=== PATIENT | female | born 1990 | race Caucasian/White ===

== ENCOUNTER → 2016-07-28 | Outpatient (CLI) | payer OTHER ==
[~2016-07-28] MED LIST: PRENTAB26 PO; RETIN A; [UNRECOGNIZED DRUG - CODE]; [UNRECOGNIZED DRUG - OTHER]
[2016-07-28 18:28] LABS: GTGD 50 Grams
== END | disposition home or self-care (01) ==
LOC: C.LAB1850 14:30
PROVIDERS: ATTEND Obstetrics & Gynecology
DX: Z34.82 Encounter for supervision of other normal pregnancy, second trimester (principal)

== ENCOUNTER → 2016-07-28 | Outpatient (CLI) | payer OTHER ==
[2016-07-28 16:18] LABS: MANUAL MICROSCOPIC REQUIRED? NO; REVIEW REQ? NO; URINE APPEARANCE CLEAR (CLEAR); URINE BILIRUBIN NEG (NEG); URINE COLOR YELLOW; URINE NITRITE NEG (NEG); URINE PH 7.5 (4.5-7.5); URINE SPECIFIC GRAVITY 1.004 (1.000-1.030); UROBILINOGEN NEG (NEG)
== END | disposition home or self-care (01) ==
LOC: C.LABSPEC 15:49
PROVIDERS: ATTEND Obstetrics & Gynecology
DX: Z34.82 Encounter for supervision of other normal pregnancy, second trimester (principal)

== ENCOUNTER → 2016-08-09 | Outpatient (CLI) | payer OTHER | END | disposition home or self-care (01) | LOC: C.LAB1850 08:35 | PROVIDERS: ATTEND Obstetrics & Gynecology | DX: O28.1 Abnormal biochemical finding on antenatal screening of mother (principal) ==

== ENCOUNTER → 2016-10-13 | Outpatient (CLI) | payer BC, OTHER ==
[~2016-10-13] MED LIST changes: -PRENTAB26 PO
[2016-10-13 12:12] LABS: URINE APPEARANCE CLEAR (CLEAR); URINE BILIRUBIN NEG (NEG); URINE COLOR DK YELLOW; URINE NITRITE NEG (NEG); URINE SPECIFIC GRAVITY 1.024 (1.000-1.030); UROBILINOGEN NEG (NEG)
[2016-10-13 12:13] LABS: MANUAL MICROSCOPIC REQUIRED? NO; REVIEW REQ? NO
[2016-10-13 12:25] LABS: HEMATOCRIT 35.8 % (37-47)
== END | disposition home or self-care (01) ==
LOC: C.LAB1850 09:45
PROVIDERS: ATTEND Obstetrics & Gynecology
DX: Z34.82 Encounter for supervision of other normal pregnancy, second trimester (principal)

== ENCOUNTER → 2016-12-08 | Outpatient (CLI) | payer BC, OTHER | END | disposition home or self-care (01) | LOC: C.LABSPEC 10:52 | PROVIDERS: ATTEND Obstetrics & Gynecology | DX: O09.893 Supervision of other high risk pregnancies, third trimester (principal); Z3A.00 Weeks of gestation of pregnancy not specified ==

== ENCOUNTER 2017-01-09 18:52 | Outpatient (CLI) | payer BC, OTHER ==
[2017-01-10] MEDS ORDERED: PRENTAB26 PO (09:41)
== END 2017-01-09 19:15 | disposition home or self-care (01) ==
LOC: C.LD 18:52 → C.OPB 18:52
PROVIDERS: ATTEND Obstetrics & Gynecology
DX: O48.0 Post-term pregnancy (principal); Z3A.40 40 weeks gestation of pregnancy

== ENCOUNTER → 2017-02-13 | Outpatient (CLI) | payer BC, OTHER ==
[~2017-02-13] MED LIST changes: +PRENTAB26 PO; -RETIN A; -[UNRECOGNIZED DRUG - CODE]; -[UNRECOGNIZED DRUG - OTHER]
== END | disposition home or self-care (01) ==
LOC: C.PAPS 14:53
PROVIDERS: ATTEND Obstetrics & Gynecology
DX: Z39.2 Encounter for routine postpartum follow-up (principal)

== ENCOUNTER → 2017-10-20 | Outpatient (CLI) | payer BC, OTHER | END | disposition home or self-care (01) | LOC: C.LAB1850 09:09 | PROVIDERS: ATTEND Obstetrics & Gynecology | DX: O09.892 Supervision of other high risk pregnancies, second trimester (principal); Z3A.00 Weeks of gestation of pregnancy not specified ==

== ENCOUNTER 2018-04-09 19:48 | Inpatient (IN) ==
[~2018-04-09 19:48] MED LIST changes: +PENICILLIN G POTASSIUM 3 MU in DEXTROSE 5% 100 ML IV PRN; -PRENTAB26 PO
[2018-04-09] MEDS ORDERED: LACTATED RINGER'S 1,000 ML IV PRN ×2 (20:16→22:16)
[2018-04-09] MEDS ORDERED: OXYTOCIN 30 UNITS/500 ML BAG IV PRN (20:16)
--- NOTE | 2018-04-09 20:25 | History & Physical Report ---
Date of Service April 09, 2018 Assessment & Plan (1) Normal labor: admit & start PCN G infusion. plan to AROM when time for 2nd dose of PCN G anticipate vaginal . History of Present Illness Primary Care Provider: NO PCP Patient is a 27 yo white female EDC 04/07/18 who presents with regular ctns every 5 minutes for several hours. no SPROM but she did have some pink mucus discharge. GBS(+) complicated by post term gestation & history of macrosomia. Allergies Allergy/AdvReac Type Severity Reaction Status Date / Time cat dander Allergy Unknown SHORTNESS Verified 01/10/17 09:40 OF BREATH Home Medications Home Medications Medication Instructions Recorded Confirmed Type Multivit/Min/Iron/Fol Ac/Pren 1 tab PO DAILY #0 tab 01/10/17 History ( Vitamin) Patient History Medical History H/O wisdom tooth extraction No known health problems Family History Father Diabetes Grandfather (Maternal) Diabetes Grandfather (Paternal) Cancer Social History marital status: Current Living Situation: Spouse Feels Safe at Home: Yes Safety Concerns: Feels Safe At This Time Smoking Status: Never smoker Hx Alcohol Use: No Hx Substance Use: No Beliefs That Will Affect Care: None Preferred Language: Mexican Communication Ability: Effective 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 Review of Systems All systems reviewed & are unremarkable except as noted in HPI & below Physical Exam 2 Vital Signs (Past 24 Hours): Last Vital Signs Pulse 105 H 04/09/18 19:57 Resp 20 04/09/18 20:04 BP 137/81 04/09/18 19:57 Constitutional: WD/WN, vitals as above Respiratory: normal respiratory effort, lungs clear to auscultation Cardiovascular: RRR, no murmur, no edema Genitourinary: OB Exam Abdomen: + vertex, + estimated weight (9-10 pounds) and + regular contractions Manual OB Exam: + cervical dilation 4 cm, + cervical effacement 90% and + station 0 OB Exam Monitor Tracing: + external FHT monitor used, + external uterine monitor used, + category I and + normal FHT variability
[2018-04-09] MEDS ORDERED: PENICILLIN G POTASSIUM 6 MU in DEXTROSE 5% 250 ML IV ONE (20:30)
[2018-04-09 20:55] LABS: Hematocrit (blood only) 34.9 % (37-47); Hemoglobin 11.6 g/dL (12.0-16.0); Mean Corpuscular Volume 92.1 fL (80-100); Mean Platelet Volume 9.9 fL (7.4-10.4); Platelet Count 203 K/uL (130-400); RDW Coefficient of Variation 13.9 % (11.5-14.5); RDW Standard Deviation 46.2 fL (36.4-46.3); Red Blood Count 3.79 M/uL (4.2-5.4); White Blood Count 14.94 K/uL (4.8-10.8)
[2018-04-09 20:56] LABS: Mean Corpuscular Hgb Conc 33.2 g/dL (32-36)
[2018-04-09] MEDS: LACTATED RINGER'S 1,000 ML IV SCH ×2 (21:02→22:19)
[2018-04-09] MEDS ORDERED: BUPIVACAINE 0.25% 30 ML VIAL ONE (21:20)
[2018-04-09] MEDS ORDERED: fentaNYL citrate 100 MCG/2 ML VIAL ONE (21:20)
[2018-04-09] MEDS ORDERED: ePHEDrine sulfate 50 MG/ML AMP ONE (21:20)
[2018-04-09] MEDS ORDERED: fentaNYL 2MCG/ML ROPIV 1.25MG/ML 100 ML BAG EPI ONE (21:21)
--- NOTE | 2018-04-09 21:53 | Anesthesiology Consultation ---
Date of Service April 09, 2018 Assessment & Plan Chart Review Chart Review: Patient NOT seen in Pre Admission Testing and Acceptable Risk for Labor Epidural Consults Requested none ASA ASA2 Proposed Anesthesia Anesthesia Type: Labor Epidural and CSE Risk / Benefits Reviewed With: PT / POA / Parent / Guardian, Accepts Plan and Informed Consent Obtained History Height/Weight Height: 5 ft 8 in Weight: 120.202 kg Allergies Allergy/AdvReac Type Severity Reaction Status Date / Time cat dander Allergy Unknown SHORTNESS Verified 01/10/17 09:40 OF BREATH Medications Home Medications Medication Instructions Recorded Confirmed Last Taken Multivit/Min/Iron/Fol Ac/Pren 1 tab PO DAILY #0 tab 01/10/17 04/08/18 21:00 ( Vitamin) Active Medications Generic Name Dose Route Start Last Admin Trade Name Freq PRN Reason Stop Dose Admin Lactated Ringer's 1,000 mls @ 125 mls/hr 04/09/18 20:30 04/09/18 21:19 Lr IV 04/11/18 20:29 999 mls/hr .Q8H PRESTON Infusion Past Medical History Medical History H/O wisdom tooth extraction No known health problems Past Family History Family History Father Diabetes Grandfather (Maternal) Diabetes Grandfather (Paternal) Cancer Past Anesthesia History No Hx of Anesthesia Complications and No Family Hx of Anesthesia Complications History of PONV No Motion Sickness Screening History of Motion Sickness: No Social History Smoking Status: Never smoker Hx Alcohol Use: No Hx Substance Use: No substance use type: does not use Exercise / Class Metabolic Activity II 4-5 Yardwork/Stairs/Walk up herron Review of Systems no chest pain or sob Physical Exam Vital Signs Last Vital Signs Temp 36.8 C 04/09/18 21:00 Pulse 95 H 04/09/18 21:51 Resp 20 04/09/18 21:30 BP 137/81 04/09/18 19:57 Pulse Ox 100 04/09/18 21:51 Constitutional + obese ENMT Mouth: no TMJ abnormality Thyromental Distance: > or= 3.5 Finger Breadths Mallampati Class: II Neck normal visual inspection Respiratory normal respiratory effort Auscultation: lungs clear to auscultation bilaterally Cardiovascular Rate/Rhythm: regular rate and regular rhythm Musculoskeletal Spine: normal cervical ROM Neurologic moves all extremities Psychiatric Orientation: alert and oriented x 3 Testing Laboratory Results 04/09/18 20:42
[2018-04-09] MEDS ORDERED: NALBUPHINE HCL INJ 10 MG/ML AMP IV PRN (22:16)
[2018-04-09] MEDS ORDERED: fentaNYL 2MCG/ML ROPIV 1.25MG/ML 100 ML BAG EPI PRN (22:16)
[2018-04-09] MEDS ORDERED: ONDANSETRON INJ 2 MG/ML 2 ML VIAL IV PRN (22:16)
[2018-04-09] MEDS ORDERED: DiphenhydrAMINE HCL 50 MG/ML VIAL IV PRN (22:16)
[2018-04-09] MEDS ORDERED: NALOXONE HCL 0.4 MG/1 ML VIAL/CARP IV PRN (22:16)
[2018-04-09] MEDS ORDERED: ePHEDrine sulfate 50 MG/ML AMP IV PRN (22:16)
[2018-04-09] MEDS ORDERED: NALOXONE HCL 1 MG in SODIUM CHLORIDE 0.9% 1000ML 1,000 ML IV PRN (22:16)
[2018-04-10] MEDS ORDERED: HYDROCORTISONE ACETATE 25 MG SUPP PR PRN (02:55)
[2018-04-10] MEDS ORDERED: SUPERCREAM 0.870% 15 GM JAR EXT PRN (02:55)
[2018-04-10] MEDS ORDERED: OXYCODONE/ACETAMINOPHEN 5mg/325mg TAB PO PRN (02:55)
[2018-04-10] MEDS ORDERED: OXYTOCIN 30 UNITS/500 ML BAG IV PRN (02:55)
[2018-04-10] MEDS ORDERED: BENZOCAINE 20% AER SPR 82.5 GM CAN EXT PRN (02:55)
[2018-04-10] MEDS ORDERED: ACETAMINOPHEN 325 MG TAB PO PRN (02:55)
[2018-04-10] MEDS ORDERED: IBUPROFEN 600 MG TAB PO PRN (02:55)
[2018-04-10] MEDS ORDERED: DIPHTHERIA/TETANUS/PERTUSSIS 0.5 ML SYR/VIAL IM ONE (02:55)
--- NOTE | 2018-04-10 03:50 | Delivery Summary ---
DATE OF OPERATION: 04/10/2018 The patient is a 27-year-old white female 5, para 3-0-1-3, EDC of 04/07/2018 who presented with regular contractions approximately every 5 minutes for several hours. She was group B strep positive. On admission, she was 4.5 cm dilated. She received 2 doses of penicillin. Membranes were ruptured for clear fluid at this time, after epidural analgesia was effective. She rapidly went to full dilation and pushed effectively over intact perineum for delivery of a viable female . Mouth and nasopharynx were suctioned on delivery of the head. The rest of the infant delivered easily and was placed on mother's abdomen for further attention and drying. The infant was vigorous on delivery. The cord was clamped and cut after approximately 30 seconds. Placenta was expressed intact with a 3-vessel cord. A first-degree perineal laceration was repaired with 3-0 chromic in the usual fashion. Estimated blood loss was 300 mL. Mother and were doing well after delivery. Bleeding was controlled with dilute Pitocin. I attest to the content of the Intraoperative Record and any orders documented therein. Any exception s are noted below.
--- NOTE | 2018-04-10 07:53 | Anesthesia Procedure Note ---
Date of Service April 10, 2018 Anesthesia Post Epidural Note Vital Signs Vital Signs: Temp Pulse Pulse Resp BP BP Pulse Ox 04/10/18 05:27 37.2 C 107 H 18 115/60 04/10/18 04:54 107 H 115/60 04/10/18 04:50 103 H 117/65 04/10/18 04:20 108 H 18 124/65 04/10/18 03:52 109 H 99 04/10/18 03:50 103 H 16 115/71 04/10/18 03:47 111 H 100 04/10/18 03:42 109 H 98 04/10/18 03:37 111 H 99 04/10/18 03:35 102 H 16 112/67 04/10/18 03:32 101 H 97 04/10/18 03:27 95 H 99 04/10/18 03:22 111 H 100 04/10/18 03:21 111 H 92 04/10/18 03:20 100 H 16 125/58 L 04/10/18 03:17 102 H 99 04/10/18 03:12 101 H 96 04/10/18 03:07 108 H 99 04/10/18 03:05 108 H 18 136/60 04/10/18 03:02 100 H 99 04/10/18 02:57 101 H 99 04/10/18 02:52 106 H 100 04/10/18 02:50 37.1 C 98 H 18 123/83 04/10/18 02:47 100 H 98 04/10/18 02:42 111 H 99 04/10/18 02:37 120 H 98 04/10/18 02:32 111 H 89 L 04/10/18 02:29 121 H 85 L 04/10/18 02:27 111 H 100 04/10/18 02:22 106 H 100 04/10/18 02:17 116 H 100 04/10/18 02:12 121 H 100 04/10/18 02:07 98 H 100 04/10/18 02:02 97 H 99 04/10/18 02:00 88 114/68 04/10/18 01:57 87 100 04/10/18 01:52 85 99 04/10/18 01:47 108 H 97 04/10/18 01:42 111 H 98 04/10/18 01:37 89 95 04/10/18 01:32 171 H 96 04/10/18 01:31 92 H 120/58 L 04/10/18 01:27 83 95 04/10/18 01:22 91 H 96 04/10/18 01:17 98 H 97 04/10/18 01:12 97 H 96 04/10/18 01:07 93 H 96 04/10/18 01:02 91 H 96 04/10/18 01:00 108 H 116/57 L 04/10/18 00:57 93 H 96 04/10/18 00:52 102 H 97 04/10/18 00:47 103 H 99 04/10/18 00:45 102 H 122/65 04/10/18 00:42 169 H 98 04/10/18 00:37 89 98 04/10/18 00:32 97 H 97 04/10/18 00:30 100 H 119/67 04/10/18 00:27 103 H 98 04/10/18 00:22 171 H 95 04/10/18 00:17 92 H 97 04/10/18 00:14 100 H 107/61 04/10/18 00:12 175 H 98 04/10/18 00:07 97 H 97 04/10/18 00:02 96 H 96 04/10/18 00:00 98 H 113/62 04/09/18 23:57 97 H 98 04/09/18 23:52 110 H 96 04/09/18 23:48 36.7 C 96 H 04/09/18 23:46 110 H 96 04/09/18 23:44 112 H 91/52 L 04/09/18 23:41 108 H 97 04/09/18 23:36 112 H 96 04/09/18 23:31 107 H 96 04/09/18 23:29 105 H 95/51 L 04/09/18 23:26 108 H 96 04/09/18 23:21 109 H 95 04/09/18 23:17 97 H 94 04/09/18 23:16 100 H 95 04/09/18 23:14 100 H 97/54 L 04/09/18 23:11 108 H 96 04/09/18 23:06 111 H 95 04/09/18 23:05 99 H 94 04/09/18 23:01 108 H 96 04/09/18 22:59 105 H 106/57 L 04/09/18 22:56 114 H 97 04/09/18 22:51 108 H 97 04/09/18 22:46 99 H 98 04/09/18 22:45 36.5 C 18 04/09/18 22:43 103 H 107/55 L 04/09/18 22:41 108 H 98 04/09/18 22:38 105 H 106/53 L 04/09/18 22:36 104 H 99 04/09/18 22:33 104 H 105/56 L 04/09/18 22:31 106 H 99 04/09/18 22:30 20 04/09/18 22:28 107 H 103/57 L 04/09/18 22:26 102 H 97 04/09/18 22:22 104 H 105/55 L 04/09/18 22:21 109 H 99 04/09/18 22:20 114 H 101/54 L 04/09/18 22:18 112 H 98/51 L 04/09/18 22:16 115 H 119/56 L 100 04/09/18 22:14 102 H 102/53 L 04/09/18 22:12 113 H 100/58 L 04/09/18 22:11 110 H 100 04/09/18 22:10 112 H 112/57 L 04/09/18 22:08 99 H 120/68 04/09/18 22:06 99 H 100 04/09/18 22:05 100 H 130/77 04/09/18 22:01 97 H 100 04/09/18 22:00 20 04/09/18 21:58 100 H 128/61 04/09/18 21:56 113 H 100 04/09/18 21:51 95 H 100 04/09/18 21:46 93 H 100 04/09/18 21:41 92 H 100 04/09/18 21:36 94 H 98 04/09/18 21:31 96 H 98 04/09/18 21:30 20 04/09/18 21:00 36.8 C 20 04/09/18 20:30 20 04/09/18 20:04 20 04/09/18 19:57 105 H 137/81 Pain Intensity Bilateral Lower Abdomen: Pain Intensity: 3 Lower Buttock: Pain Intensity: 3 Notes Mental Status: alert / awake / arousable Nausea / Vomiting: adequately controlled Pain: adequately controlled Airway Patency, RR, SpO2: stable & adequate BP & HR: stable & adequate Hydration State: stable & adequate Anesthetic Complications: no major complications apparent Epidural: Removed without complications and With tip intact
--- NOTE | 2018-04-10 08:23 | Obstetrical Progress Note ---
Date of Service April 10, 2018 doing well this AM . lochia is moderate, minimal cramping. going well. Assessment & Plan (1) Normal labor: satisfactory progress continue current care plan. Present on Admission?: Yes Physical Exam 2 Vital Signs (Past 24 Hours): Last Vital Signs Temp 37.2 C 04/10/18 05:27 Pulse 107 H 04/10/18 05:27 Resp 18 04/10/18 05:27 BP 115/60 04/10/18 05:27 Pulse Ox 99 04/10/18 03:52 Genitourinary: OB Exam Abdomen: + fundal height (at Umbilicus & non tender)
[2018-04-10] MEDS: DOCUSATE SODIUM 100 MG CAP PO SCH ×2 (08:31→20:41)
[2018-04-10] MEDS: PRENATAL VITAMIN 1 TAB PO SCH (08:31)
--- NOTE | 2018-04-11 06:28 | Obstetrical Progress Note ---
Date of Service <Ronal Avina MD - Last Filed: 04/11/18 06:28> April 11, 2018 Assessment & Plan <Ronal Avina MD - Last Filed: 04/11/18 06:28> (1) (normal spontaneous vaginal delivery): Nataliia is a 27yo who presented at 40+ weeks now s/p PPD#1 - Feels well today. Eating well, voiding well, ambulating well. - well, no difficulties - No pain today, did not require motrin or analgesics last night - Routine care - After discharge will have [address] Moore. - Counseling provided for bleeding, vaginal care, mastitis, intercourse, and post depression (2) Post-term , 40-42 weeks of gestation: Subjective <Ronal Avina MD - Last Filed: 04/11/18 06:28> Ambulation: ambulating normally Voiding: no voiding problems Passing Gas:: Yes Diet Tolerance:: regular diet Lochia:: Small Feeding Type:: breast feeding Current Pain Level(1-10): 0 Review of Systems Denies fever, chills, sweats Denies shortness of breath, difficulty breathing, chest pain, palpitations, chest pressure. Denies breast pain. Denies dysuria. Denies headache. Physical Exam <Ronal Avina MD - Last Filed: 04/11/18 06:28> Vital Signs (Past 24 Hours) Last Vital Signs Temp 36.5 C 04/11/18 00:05 Pulse 80 04/11/18 00:05 Resp 16 04/11/18 00:05 BP 107/60 04/11/18 00:05 Pulse Ox 96 04/11/18 00:05 General: Alert, oriented. No acute distress. Cardiac: Regular rate and rhythm, no murmurs/rubs/gallops. Respiratory: Clear to auscultation anterior and posteriorly, no wheezes/rales/ rhonchi. No increased work of breathing. Symmetrical chest rise. No respiratory distress. Abdomen: Soft, nontender, nondistended. Bowel sounds present. Uterus: Uterine fundus firm, palpable 2cm below umbilicus. Lower Extremities: No lower extremity edema or swelling. No deep calf pain. Lobo's negative bilaterally. <London Peñaloza Jr, MD, FACOG - Last Filed: 04/11/18 07:39> Co-Signing Physician Notes Resident Physician Supervision Note: I was present with Dr. Garrido during the history and exam. I discussed the case with the resident and agree with the findings and plan as documented in the note. Any exceptions or clarifications are listed here: D/C instructions reviewed. F/U in 6 weeks. Documented By: London Peñaloza Jr, MD, FACOG Resident Activity Tracking <Ronal Avina MD - Last Filed: 04/11/18 06:28> Resident Involvement: Resident Care Provided Care Provided: Adult Hospital Medicine
[2018-04-11 06:36] LABS: Hematocrit (blood only) 36.3 % (37-47); Hemoglobin 11.7 g/dL (12.0-16.0); Mean Corpuscular Hgb Conc 32.2 g/dL (32-36); Mean Corpuscular Volume 93.8 fL (80-100); Platelet Count 203 K/uL (130-400); RDW Coefficient of Variation 14.1 % (11.5-14.5); RDW Standard Deviation 47.8 fL (36.4-46.3); Red Blood Count 3.87 M/uL (4.2-5.4)
[2018-04-11] MEDS: DOCUSATE SODIUM 100 MG CAP PO SCH (08:55)
[2018-04-11] MEDS: PRENATAL VITAMIN 1 TAB PO SCH (08:55)
[2018-04-11] MEDS ORDERED: BISACODYL 5 MG TABEC PO SCH (20:00)
== END 2018-04-11 11:50 | disposition home or self-care (01) | DRG 807 ==
LOC: 4S1 19:48 → OPB 19:48 → 4S1 20:16 → 4S2 04-10 05:10